=== PATIENT | male | born 1990 | race Caucasian/White ===

== ENCOUNTER 2023-02-03 00:22 | Emergency (ER) | payer OTHER ==
[~2023-02-03] VITALS: Ht 172.7 cm; Wt 86.2 kg
[2023-02-03] MEDS ORDERED: CEPHALEXIN500 M1 PO (01:56)
== END 2023-02-03 02:02 | disposition home or self-care (01) ==
LOC: ED 00:22
DX: S61.212A Laceration without foreign body of right middle finger without damage to nail, initial encounter (principal); W31.89XA Contact with other specified machinery, initial encounter; Y93.89 Activity, other specified; Y92.89 Other specified places as the place of occurrence of the external cause; Y99.0 Civilian activity done for income or pay

== ENCOUNTER 2023-10-31 13:51 | Emergency (ER) | payer OTHER ==
[~2023-10-31] VITALS: Ht 175.2 cm; Wt 83.9 kg
[~2023-10-31 13:51] MED LIST: CEPHALEXIN500 M1 PO
[2023-10-31] MEDS ORDERED: Lidocaine Hydrochloride 2% 10 ML AMP SC ONE (15:55)
[2023-10-31] MEDS ORDERED: CEPHALEXIN500 M1 PO (16:38)
== END 2023-10-31 16:48 | disposition home or self-care (01) ==
LOC: ED 13:51
DX: S61.213A Laceration without foreign body of left middle finger without damage to nail, initial encounter (principal); W23.0XXA Caught, crushed, jammed, or pinched between moving objects, initial encounter; Y93.89 Activity, other specified; Y92.89 Other specified places as the place of occurrence of the external cause; Y99.8 Other external cause status

== ENCOUNTER 2025-01-06 22:03 | Inpatient (IN) | payer OTHER ==
[~2025-01-06] VITALS: Ht 175.2 cm; Wt 83.9 kg
[2025-01-06 22:18] VITALS: BP 139/78
[2025-01-06 22:50] LABS: BASO # 0.0 10*3/uL (0.0-0.1); BASO % 0.2 % (0.0-1.0); EOS # 0.0 10*3/uL (0.0-0.4); EOS % 0.4 % (1.0-4.0); MEAN CELL VOLUME 87.7 fl (80.0-94.0); MEAN CORPUSCULAR HGB 30.0 pg (27.0-31.0); MEAN PLATELET VOLUME 9.4 fl (9.6-12.3); MONO # 0.8 10*3/uL (0.1-1.0); MONO % 9.8 % (3.0-9.0); NEUT # 5.9 10*3/uL (2.3-7.9); NEUT % 70.5 % (47.0-73.0); NUCLEATED RED BLOOD CELL 0.0 % (0.0-0.0); NUCLEATED RED BLOOD CELL 0.0 10*3/uL (0.0-0.0); PLATELET COUNT AUTOMATED 213 10*3/uL (130-400); RED CELL DISTRI WIDTH 13.1 % (0-14.5)
[2025-01-06 23:09] LABS: BUN 17 mg/dl (9-23)
[2025-01-07] MEDS ORDERED: POTASSIUM CHLORIDE 20 MEQ TAB PO ONE (00:45)
[2025-01-07] MEDS ORDERED: SODIUM CHLORIDE 0.9% 1,000 ML IV ONE (01:30)
[2025-01-07] MEDS ORDERED: BISACODYL 10 MG SUPP R PRN (02:00)
[2025-01-07] MEDS ORDERED: Acetaminophen/Hydrocodone 5 MG/325 MG TABLET PO PRN (02:00)
[2025-01-07] MEDS ORDERED: BISACODYL 5 MG TAB PO PRN (02:00)
[2025-01-07] MEDS ORDERED: ACETAMINOPHEN 325 MG TAB PO PRN (02:00)
[2025-01-07] MEDS ORDERED: ACETAMINOPHEN 650 MG SUPP R PRN (02:00)
[2025-01-07] MEDS ORDERED: Ondansetron Hydrochloride 4 MG/2 ML VIAL IV PRN (02:00)
[2025-01-07 05:57] VITALS: BP 141/83
[2025-01-07 07:17] LABS: BASO # 0.0 10*3/uL (0.0-0.1); BASO % 0.3 % (0.0-1.0); EOS # 0.0 10*3/uL (0.0-0.4); EOS % 0.2 % (1.0-4.0); MEAN CELL VOLUME 86.9 fl (80.0-94.0); MEAN CORPUSCULAR HGB 29.6 pg (27.0-31.0); MEAN PLATELET VOLUME 9.5 fl (9.6-12.3); MONO # 1.0 10*3/uL (0.1-1.0); MONO % 11.2 % (3.0-9.0); NEUT # 6.6 10*3/uL (2.3-7.9); NEUT % 74.9 % (47.0-73.0); NUCLEATED RED BLOOD CELL 0.0 % (0.0-0.0); NUCLEATED RED BLOOD CELL 0.0 10*3/uL (0.0-0.0); PLATELET COUNT AUTOMATED 207 10*3/uL (130-400); RED CELL DISTRI WIDTH 12.8 % (0-14.5)
[2025-01-07 07:41] LABS: ACT PARTIAL THROMBO TIME 27.6 SECONDS (20.0-32.1)
[2025-01-07 07:44] LABS: BUN 12 mg/dl (9-23); FREE T4 1.21 ng/dl (0.89-1.76); LDL CHOLESTEROL 82 mg/dL (9-159); SGPT/ALT 18 U/L (5-49)
[2025-01-07 08:10] LABS: VITAMIN D, 25-HYDROXY 30.1 ng/mL (30-100)
[2025-01-07 08:15] VITALS: BP 121/86
[2025-01-07] MEDS ORDERED: Vancomycin Hydrochloride 1,000 MG in SODIUM CHLORIDE 0.9% 250 ML IV SCH (10:00)
[2025-01-07] MEDS ORDERED: MUPIROCIN 15 GM TUBE T SCH (10:10)
[2025-01-07 11:23] VITALS: BP 113/72
[2025-01-07 20:00] VITALS: BP 138/73
[2025-01-08] VITALS: BP 127/79
[2025-01-08 08:00] VITALS: BP 113/71
[2025-01-08 09:28] LABS: BASO # 0.0 10*3/uL (0.0-0.1); BASO % 0.2 % (0.0-1.0); EOS # 0.0 10*3/uL (0.0-0.4); EOS % 0.2 % (1.0-4.0); MEAN CELL VOLUME 87.0 fl (80.0-94.0); MEAN CORPUSCULAR HGB 29.9 pg (27.0-31.0); MEAN PLATELET VOLUME 9.3 fl (9.6-12.3); MONO # 0.7 10*3/uL (0.1-1.0); MONO % 7.1 % (3.0-9.0); NEUT # 7.8 10*3/uL (2.3-7.9); NEUT % 77.9 % (47.0-73.0); NUCLEATED RED BLOOD CELL 0.0 % (0.0-0.0); NUCLEATED RED BLOOD CELL 0.0 10*3/uL (0.0-0.0); PLATELET COUNT AUTOMATED 191 10*3/uL (130-400); RED CELL DISTRI WIDTH 12.6 % (0-14.5)
[2025-01-08 09:46] LABS: BUN 14 mg/dl (9-23)
[2025-01-08 12:00] VITALS: BP 119/78
[2025-01-08 16:00] VITALS: BP 124/79
[2025-01-08 20:00] VITALS: BP 128/66
[2025-01-09] VITALS: BP 134/81
[2025-01-09 06:36] LABS: BASO # 0.0 10*3/uL (0.0-0.1); BASO % 0.3 % (0.0-1.0); EOS # 0.2 10*3/uL (0.0-0.4); EOS % 1.8 % (1.0-4.0); MEAN CELL VOLUME 87.8 fl (80.0-94.0); MEAN CORPUSCULAR HGB 29.9 pg (27.0-31.0); MEAN PLATELET VOLUME 9.6 fl (9.6-12.3); MONO # 1.0 10*3/uL (0.1-1.0); MONO % 9.5 % (3.0-9.0); NEUT # 7.8 10*3/uL (2.3-7.9); NEUT % 71.8 % (47.0-73.0); NUCLEATED RED BLOOD CELL 0.0 % (0.0-0.0); NUCLEATED RED BLOOD CELL 0.0 10*3/uL (0.0-0.0); PLATELET COUNT AUTOMATED 219 10*3/uL (130-400); RED CELL DISTRI WIDTH 12.5 % (0-14.5)
[2025-01-09 06:38] LABS: BUN 8 mg/dl (9-23)
[2025-01-09 08:00] VITALS: BP 127/73
[2025-01-09] MEDS ORDERED: ZYVOX600 MG PO (11:53)
== END 2025-01-09 13:39 | disposition home or self-care (01) | DRG 603 ==
LOC: ED 22:03 → 4E 01-07 01:29 → EDHOLD 01-07 01:29 → 4E 01-07 14:28
PROVIDERS: Internal Medicine; Student in an Organized Health Care Education/Training Program; ADMIT Internal Medicine; ATTEND Internal Medicine
DX: L03.115 Cellulitis of right lower limb (principal); D64.9 Anemia, unspecified; E87.6 Hypokalemia; R73.9 Hyperglycemia, unspecified; M54.9 Dorsalgia, unspecified; G89.29 Other chronic pain; Z86.14 Personal history of Methicillin resistant Staphylococcus aureus infection; Z83.3 Family history of diabetes mellitus